=== PATIENT | male | born 1970 | race African-American/Black ===

== ENCOUNTER 2017-04-10 23:33 | Emergency (ER) | payer SELFPAY ==
[2017-04-10 23:41] VITALS: BP 101/69; BMI 18.1
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
[2017-04-11] MEDS ORDERED: TORADOL 60 MG VIAL IM ONE (00:13)
[2017-04-11] MEDS ORDERED: TORADOL 60 MG VIAL ONE (00:16)
== END 2017-04-11 00:45 | disposition home or self-care (01) ==
LOC: ER 23:46
DX: E10.42 Type 1 diabetes mellitus with diabetic polyneuropathy (principal)
CPT/HCPCS: 96372; 99282; J1885